=== PATIENT | male | born 1950 | race African-American/Black ===

== ENCOUNTER 2017-07-28 16:33 | Inpatient (IN) | payer MEDICARE, MEDICAID ==
[2017-07-28 17:42] LABS: ABSOLUTE EOSINOPHILS # (AUTO) 0.3 10^3/uL (0.0-0.6); ABSOLUTE LYMPHOCYTES (AUTO) 1.8 10^3/uL (0.5-4.7); ABSOLUTE NEUT (AUTO) 7.5 10^3/uL (1.7-8.2); BASOPHILS % (AUTO) 0.5 % (0-2); EOSINOPHILS % (AUTO) 2.4 % (0-6); HEMATOCRIT 46.4 % (37.9-51.0); HEMOGLOBIN 15.6 g/dL (13.5-17.0); MEAN CORPUSCULAR HGB CONC 33.6 g/dL (32.0-36.0); MEAN CORPUSCULAR VOLUME 89 fl (80-97); MONOCYTES % (AUTO) 9.3 % (3-13); PLATELET COUNT 183 10^3/uL (150-450); RED CELL DISTRIBUTION WIDTH 13.5 % (11.5-14.0); SEGMENTED NEUTROPHILS % (AUTO) 70.8 % (42-78); TOTAL CELLS COUNTED % (AUTO) 100 %; WHITE BLOOD COUNT 10.6 10^3/uL (4.0-10.5)
[2017-07-28 17:57] LABS: ALANINE AMINOTRANSFERASE 32 U/L (21-72); ALBUMIN 4.4 g/dL (3.5-5.0); ALKALINE PHOSPHATASE 77 U/L (38-126); ANION GAP 13 (5-19); ASPARTATE AMINO TRANSFERASE 20 U/L (17-59); BILIRUBIN,DIRECT 0.4 mg/dL (0.0-0.4); BILIRUBIN,TOTAL 0.4 mg/dL (0.2-1.3); BLOOD UREA NITROGEN 18 mg/dL (7-20); CALCIUM 9.7 mg/dL (8.4-10.2); CARBON DIOXIDE 26 mmol/L (22-30); CHLORIDE 106 mmol/L (98-107); GLUCOSE 90 mg/dL (75-110); POTASSIUM 4.5 mmol/L (3.6-5.0); TOTAL PROTEIN 7.6 g/dL (6.3-8.2)
[2017-07-28 18:12] LABS: ARTERIAL BLOOD BASE EXCESS 2.3 mmol/L; ARTERIAL BLOOD H2CO3 1.49 mmol/L (1.05-1.35); ARTERIAL BLOOD HCO3 28.5 mmol/L (20-26); ARTERIAL BLOOD O2 SATURATION 94.3 % (94-98); ARTERIAL BLOOD PCO2 49.6 mmHg (35-45); ARTERIAL BLOOD PH 7.38 (7.35-7.45); ARTERIAL BLOOD PO2 73.1 mmHg (80-100)
[2017-07-28 18:14] LABS: ARTERIAL BLOOD FIO2 21%
[2017-07-28] MEDS ORDERED: LEVOFLOXACIN 750 MG/D5W RTU 750 MG/150 ML RTUPB IV ONE (19:00)
[2017-07-28] MEDS ORDERED: INFLUENZA ADLT QUAD (36MOS+) 2017-18 VAC 0.5 ML SYR IM PRN (19:23)
--- NOTE | 2017-07-28 19:44 | RADIOLOGY REPORT (SQ) ---
EXAM DESCRIPTION: CT CHEST WITHOUT COMPLETED DATE/TIME: 07/28/2017 6:52 pm REASON FOR STUDY: pneumonia J12.9 VIRAL PNEUMONIA, UNSPECIFIED E11.8 TYPE 2 DIABETES MELLITUS WITH UNSPECIFIED COMPLICATION COMPARISON: None. TECHNIQUE: CT scan performed of the chest without intravenous contrast. Images reviewed with lung, soft tissue and bone windows. Reconstructed coronal and sagittal MPR images reviewed. All images st ored on PACS. All CT scanners at this facility use dose modulation, iterative reconstruction, and/or weight based d osing when appropriate to reduce radiation dose to as low as reasonably achievable (ALARA). [facility]: Dose Right [facility]: CareDose [facility]: Dose Right [facility]: Teradose 4D [facility]: [employer] RADIATION DOSE: CT Rad equipment meets quality standard of care and radiation dose reduction techniq ues were employed. CTDIvol: 10.9 mGy. DLP: 452 mGy-cm. mGy. LIMITATIONS: No technical limitations. FINDINGS: LUNGS AND PLEURA: There are scattered areas of patchy ground-glass -nodular opacities in b oth lungs, greater in the right upper and both lower lobes. No dense lobar consolidation or pleural effusion. No pneumothorax. Moderate upper lobe paraseptal emphysema. No fibrosis. HILAR AND MEDIASTINAL STRUCTURES: No bulky nodes. No obvious aneurysm. HEART AND VASCULAR STRUCTURES: No aneurysm. Moderate coronary calcifications. No pericardial effusi on. UPPER ABDOMEN: No significant findings. Limited exam. THYROID AND OTHER SOFT TISSUES: No masses. No adenopathy. BONES: No acute finding. HARDWARE: None in the chest. OTHER: No other significant findings. IMPRESSION: There are scattered areas of patchy ground-glass -nodular opacities in both lungs, great er in the right upper and both lower lobes. No dense lobar consolidation or pleural effusion. No pn eumothorax. Moderate upper lobe paraseptal emphysema. TECHNICAL DOCUMENTATION: JOB ID: [id number] Quality ID # [id number]: Final reports with documentation of one or more dose reduction techniques (e.g., Au tomated exposure control, adjustment of the mA and/or kV according to patient size, use of iterative reconstruction technique) 2010 [employer]- All Rights Reserved
--- NOTE | 2017-07-28 19:52 | EKG REPORT ---
SEVERITY:- BORDERLINE ECG - SINUS RHYTHM BORDERLINE T WAVE ABNORMALITIES : Confirmed by: Amos Izaguirre MD 28-Jul-2017 19:51:23
[2017-07-28] MEDS ORDERED: GLUCAGON,HUMAN RECOMB 1 MG INJ IM PRN (20:09)
[2017-07-28] MEDS ORDERED: DEXTROSE 40% GEL 15 GM TUBE PO PRN ×2 (20:09)
[2017-07-28] MEDS ORDERED: DEXTROSE 50%-WATER 25 GM/50 ML DISP.SYRIN IV PRN ×2 (20:09)
[2017-07-28 20:53] LABS: HEMATOCRIT 42.9 % (37.9-51.0); HEMOGLOBIN 14.3 g/dL (13.5-17.0); MEAN CORPUSCULAR HEMOGLOBIN 29.9 pg (27.0-33.4); MEAN CORPUSCULAR HGB CONC 33.4 g/dL (32.0-36.0); MEAN CORPUSCULAR VOLUME 89 fl (80-97); PLATELET COUNT 166 10^3/uL (150-450); RED BLOOD COUNT 4.79 10^6/uL (4.35-5.55); RED CELL DISTRIBUTION WIDTH 13.3 % (11.5-14.0); WHITE BLOOD COUNT 9.6 10^3/uL (4.0-10.5)
[2017-07-28 21:22] LABS: PROTHROMBIN TIME 13.9 SEC (11.4-15.4)
[2017-07-28 21:23] LABS: PARTIAL THROMBOPLASTIN TIME 29.9 SEC (23.5-35.8)
--- NOTE | 2017-07-28 22:29 | PDOC H&P ---
History of Present Illness Admission Date/PCP: 07/28/17 16:51 IBRAHIMA TIRADO MD History of Present Illness: CHAY CANDELARIO is a 66 year old male, He came to the office today for evaluation of respiratory symptoms, he was seen in urgent care few days ago, he is coughing,, vomiting in the office, he was admitted directly from the office into the hospital because of concern for pneumonia. CT of the chest was done, it showed Scattered areas of patchy ground glass nodular opacities in both lungs greater in the right upper arm both lower lobes. There is also moderate upper lobe paraseptal emphysema. ABG was done in room air, pH 7.38 PCO2 49.6 PO2 73.1 bicarbonate 20.5 consistent with mixed acid-base disorder. Past Medical History Cardiac Medical History: Reports: Hypertension Denies: Coronary Artery Disease, Myocardial Infarction Pulmonary Medical History: Denies: Asthma, Bronchitis, Chronic Obstructive Pulmonary Disease (COPD), Pneumonia Neurological Medical History: Denies: Seizures Musculoskeltal Medical History: Denies: Arthritis Psychiatric Medical History: Denies: Depression Hematology: Denies: Anemia Social History Smoking Status: Current Every Day Smoker Cigarettes Packs Per Day: 10 Frequency of Alcohol Use: Social Hx Recreational Drug Use: No Drugs: None Hx Prescription Drug Abuse: No Family History Parental Family History Reviewed: Yes Children Family History Reviewed: Yes Sibling(s) Family History Reviewed.: Yes Medication/Allergy Home Medications: Losartan/Hydrochlorothiazide [Hyzaar 100-12.5 Tablet] 1 each PO DAILY 09/10/13 Metformin HCl [Glucophage] 1,000 mg PO DAILY 09/10/13 Allergies/Adverse Reactions: No Known Allergies Allergy (Unverified 09/10/13 08:56) Review of Systems Constitutional: PRESENT: chills, fatigue, fever(s) Eyes: ABSENT: visual disturbances Ears: ABSENT: hearing changes Cardiovascular: PRESENT: dyspnea on exertion Respiratory: PRESENT: cough, dyspnea, sputum Gastrointestinal: PRESENT: vomiting Genitourinary: ABSENT: dysuria, hematuria Musculoskeletal: ABSENT: joint swelling Integumentary: ABSENT: rash, wounds Neurological: ABSENT: abnormal gait, abnormal speech, confusion, dizziness, focal weakness, syncope Psychiatric: ABSENT: anxiety, depression, homidical ideation, suicidal ideation Endocrine: ABSENT: cold intolerance, heat intolerance, menstrual abnormalities, polydipsia, polyuria Hematologic/Lymphatic: ABSENT: easy bleeding, easy bruising, lymphadenopathy Physical Exam Vital Signs: Temp Pulse Resp BP Pulse Ox 98.8 F 84 16 135/78 H 98 07/28/17 20:01 07/28/17 20:01 07/28/17 20:01 07/28/17 20:01 07/28/17 20:01 General appearance: PRESENT: mild distress Head exam: PRESENT: atraumatic, normocephalic Eye exam: PRESENT: PERRLA Ear exam: PRESENT: normal external ear exam Mouth exam: PRESENT: moist, tongue midline Neck exam: PRESENT: full ROM Respiratory exam: PRESENT: wheezes Cardiovascular exam: PRESENT: RRR, +S1, +S2 Pulses: PRESENT: normal dorsalis pedis pul, +2 pedal pulses bilateral Vascular exam: PRESENT: normal capillary refill GI/Abdominal exam: PRESENT: normal bowel sounds, soft Rectal exam: PRESENT: deferred Neurological exam: PRESENT: alert, CN II-XII grossly intact Psychiatric exam: PRESENT: appropriate affect, normal mood Skin exam: PRESENT: dry, intact, warm Results Laboratory Results: 07/28/17 20:45 07/28/17 20:45 07/28/17 07/28/17 07/28/17 17:25 17:25 17:55 WBC 10.6 H RBC 5.20 Hgb 15.6 Hct 46.4 MCV 89 MCH 30.0 MCHC 33.6 RDW 13.5 Plt Count 183 Seg Neutrophils % 70.8 Lymphocytes % 17.0 Monocytes % 9.3 Eosinophils % 2.4 Basophils % 0.5 Absolute Neutrophils 7.5 Absolute Lymphocytes 1.8 Absolute Monocytes 1.0 Absolute Eosinophils 0.3 Absolute Basophils 0.0 Carbonic Acid 1.49 H HCO3/H2CO3 Ratio 19:1 ABG pH 7.38 ABG pCO2 49.6 H ABG pO2 73.1 L ABG HCO3 28.5 H ABG O2 Saturation 94.3 ABG Base Excess 2.3 FiO2 21% Sodium 145.0 Potassium 4.5 Chloride 106 Carbon Dioxide 26 Anion Gap 13 BUN 18 Creatinine 0.87 Est GFR ( Amer) > 60 Est GFR (Non-Af Amer) > 60 Glucose 90 Calcium 9.7 Total Bilirubin 0.4 AST 20 ALT 32 Alkaline Phosphatase 77 Total Protein 7.6 Albumin 4.4 02/22/18 02/22/18 20:45 20:45 WBC 9.6 RBC 4.79 Hgb 14.3 Hct 42.9 MCV 89 MCH 29.9 MCHC 33.4 RDW 13.3 Plt Count 166 Seg Neutrophils % Lymphocytes % Monocytes % Eosinophils % Basophils % Absolute Neutrophils Absolute Lymphocytes Absolute Monocytes Absolute Eosinophils Absolute Basophils Carbonic Acid HCO3/H2CO3 Ratio ABG pH ABG pCO2 ABG pO2 ABG HCO3 ABG O2 Saturation ABG Base Excess FiO2 Sodium Potassium Chloride Carbon Dioxide Anion Gap BUN Creatinine 0.88 Est GFR ( Amer) > 60 Est GFR (Non-Af Amer) > 60 Glucose Calcium Total Bilirubin AST ALT Alkaline Phosphatase Total Protein Albumin Impressions: Chest CT 07/28/17 00:00 IMPRESSION: There are scattered areas of patchy ground-glass -nodular opacities in both lungs, greater in the right upper and both lower lobes. No dense lobar consolidation or pleural effusion. No pneumothorax. Moderate upper lobe paraseptal emphysema. Assessment & Plan - Diagnosis (1) Acute exacerbation of chronic obstructive pulmonary disease (COPD) Plan: Patient presented with acute exacerbation of chronic obstructive pulmonary disease, ABG consistent with mixed acid-base disorder. Treat with IV Solu- Medrol, bronchodilators (2) Pneumonia Qualifiers: Pneumonia type: due to unspecified organism Laterality: unspecified laterality Lung location: unspecified part of lung Qualified Code(s): J18.9 - Pneumonia, unspecified organism Is this a current diagnosis for this admission?: Yes Plan: Treated with IV antibiotic (3) Mixed acid base balance disorder Is this a current diagnosis for this admission?: Yes
[2017-07-28] MEDS: METHYLPREDNISOLONE INJ 125 MG/2 ML SDV IV SCH (23:02)
[2017-07-28] MEDS: CEFEPIME HCL 2 GM in NORMAL SALINE 100 ML IV SCH (23:02)
[2017-07-29] MEDS: METHYLPREDNISOLONE INJ 125 MG/2 ML SDV IV SCH ×3 (05:20→22:24)
[2017-07-29] MEDS: INSULIN LISPRO 100 UNIT/ML 3 ML VIAL SUBCUT PRN ×2 (08:18→22:25)
[2017-07-29] MEDS: CEFEPIME HCL 2 GM in NORMAL SALINE 100 ML IV SCH ×2 (09:18→22:25)
[2017-07-29] MEDS: METFORMIN HCL 500 MG TABLET PO SCH (09:18)
[2017-07-29] MEDS: ENOXAPARIN SODIUM INJ 40 MG/0.4 ML DISP.SYRIN SUBCUT SCH (09:18)
[2017-07-29] MEDS: IPRATROPIUM/ALBUTEROL 0.5-2.5 MG/3 ML AMPUL NEB SCH ×3 (11:41→19:37)
[2017-07-29] MEDS: ACETAMINOPHEN 325 MG TABLET PO SCH ×3 (12:20→23:48)
[2017-07-29 13:32] LABS: APPEARANCE,URINE CLEAR; BILIRUBIN,URINE NEGATIVE (NEGATIVE); COLOR,URINE YELLOW; GLUCOSE, URINE 50 mg/dL (NEGATIVE); KETONES,URINE NEGATIVE (NEGATIVE); LEUKOCYTE ESTERASE,URINE NEGATIVE (NEGATIVE); NITRITE,URINE NEGATIVE (NEGATIVE); PROTEIN,URINE NEGATIVE (NEGATIVE); URINE SPECIFIC GRAVITY 1.028; UROBILINOGEN,URINE NEGATIVE mg/dL (<2.0)
[2017-07-29] MEDS: LEVOFLOXACIN 750 MG/D5W RTU 750 MG/150 ML RTUPB IV SCH (17:33)
--- NOTE | 2017-07-29 21:55 | PDOC PROGRESS REPORT ---
Subjective Progress Note for:: 07/29/17 Subjective:: Patient was admitted yesterday for the management of acute COPD exacerbation associated with pneumonia and mixed acid-base disorder. He complained of back pain,, cough Reason For Visit: PNEUMONIA Physical Exam Vital Signs: Temp Pulse Resp BP Pulse Ox 98.6 F 101 H 14 135/83 H 95 07/29/17 19:29 07/29/17 19:37 07/29/17 19:37 07/29/17 19:29 07/29/17 19:37 Intake & Output 07/28/17 07/29/17 07/30/17 06:59 06:59 06:59 Intake Total 480 690 Output Total 600 375 Balance -120 315 Weight 84.822 kg General appearance: PRESENT: mild distress Head exam: PRESENT: atraumatic, normocephalic Eye exam: PRESENT: conjunctiva pink, EOMI, PERRLA Ear exam: PRESENT: normal external ear exam Mouth exam: PRESENT: moist, tongue midline Neck exam: PRESENT: full ROM Respiratory exam: PRESENT: wheezes Cardiovascular exam: PRESENT: RRR, +S1, +S2 Pulses: PRESENT: normal dorsalis pedis pul, +2 pedal pulses bilateral Vascular exam: PRESENT: normal capillary refill GI/Abdominal exam: PRESENT: normal bowel sounds, soft Rectal exam: PRESENT: deferred Neurological exam: PRESENT: alert, awake, oriented to person, oriented to place , oriented to time, oriented to situation, CN II-XII grossly intact Psychiatric exam: PRESENT: appropriate affect, normal mood Skin exam: PRESENT: dry, intact, warm Results Laboratory Results: 07/28/17 20:45 07/28/17 20:45 07/29/17 12:41 Urine Color YELLOW Urine Appearance CLEAR Urine pH 5.0 Ur Specific Colp 1.028 Urine Protein NEGATIVE Urine Glucose (UA) 50 H Urine Ketones NEGATIVE Urine Blood NEGATIVE Urine Nitrite NEGATIVE Ur Leukocyte Esterase NEGATIVE Urine WBC (Auto) 1 Urine RBC (Auto) 0 07/29/17 12:41 Sputum Gram Stain - Final 07/29/17 12:41 Sputum Sputum Culture - Final Impressions: Chest CT 07/28/17 00:00 IMPRESSION: There are scattered areas of patchy ground-glass -nodular opacities in both lungs, greater in the right upper and both lower lobes. No dense lobar consolidation or pleural effusion. No pneumothorax. Moderate upper lobe paraseptal emphysema. Assessment & Plan - Diagnosis (1) Acute exacerbation of chronic obstructive pulmonary disease (COPD) Is this a current diagnosis for this admission?: Yes Plan: Continue IV antibiotic, Solu-Medrol, bronchodilators (2) Pneumonia Qualifiers: Pneumonia type: due to unspecified organism Laterality: unspecified laterality Lung location: unspecified part of lung Qualified Code(s): J18.9 - Pneumonia, unspecified organism Is this a current diagnosis for this admission?: Yes (3) Mixed acid base balance disorder Is this a current diagnosis for this admission?: Yes
[2017-07-29] MEDS: ZOLPIDEM TARTRATE 5 MG TABLET PO SCH (22:24)
[2017-07-30] MEDS: IPRATROPIUM/ALBUTEROL 0.5-2.5 MG/3 ML AMPUL NEB SCH ×3 (00:06→08:04)
[2017-07-30] MEDS: ACETAMINOPHEN 325 MG TABLET PO SCH ×4 (06:50→23:25)
[2017-07-30] MEDS: METHYLPREDNISOLONE INJ 125 MG/2 ML SDV IV SCH ×3 (06:50→21:17)
[2017-07-30] MEDS: HYDROCHLOROTHIAZIDE 12.5 MG CAPSULE PO SCH (09:18)
[2017-07-30] MEDS: METFORMIN HCL 500 MG TABLET PO SCH (09:18)
[2017-07-30] MEDS: LOSARTAN POTASSIUM 50 MG TABLET PO SCH (09:18)
[2017-07-30] MEDS: ENOXAPARIN SODIUM INJ 40 MG/0.4 ML DISP.SYRIN SUBCUT SCH (09:20)
[2017-07-30] MEDS: INSULIN LISPRO 100 UNIT/ML 3 ML VIAL SUBCUT PRN ×2 (09:20→11:45)
[2017-07-30] MEDS: CEFEPIME HCL 2 GM in NORMAL SALINE 100 ML IV SCH ×2 (09:27→21:17)
[2017-07-30] MEDS ORDERED: (PENDING PHARMACY ID) (Losartan/Hydrochlorothiazide [Hyzaar 100-12.5 Tablet] 1 EACH) PO SCH (10:00)
--- NOTE | 2017-07-30 17:26 | PDOC PROGRESS REPORT ---
Subjective Progress Note for:: 07/30/17 Subjective:: Patient was seen by the bedside, he is improving with treatment, he promised he will stop smoking cigarettes Reason For Visit: COPD, EXACERBATION,PNEUMONIA, MIXED ACID BASE Physical Exam Vital Signs: Temp Pulse Resp BP Pulse Ox 98.2 F 86 16 149/85 H 97 07/30/17 16:00 07/30/17 16:00 07/30/17 16:00 07/30/17 16:00 07/30/17 16:00 Intake & Output 07/29/17 07/30/17 07/31/17 06:59 06:59 06:59 Intake Total 480 1510 Output Total 600 1275 Balance -120 235 Weight 84.822 kg General appearance: PRESENT: no acute distress, well-developed, well-nourished Head exam: PRESENT: atraumatic, normocephalic Eye exam: PRESENT: conjunctiva pink, EOMI, PERRLA Ear exam: PRESENT: normal external ear exam Mouth exam: PRESENT: moist, tongue midline Neck exam: PRESENT: full ROM Respiratory exam: PRESENT: wheezes Cardiovascular exam: PRESENT: RRR, +S1, +S2 Vascular exam: PRESENT: normal capillary refill GI/Abdominal exam: PRESENT: normal bowel sounds, soft Rectal exam: PRESENT: deferred Neurological exam: PRESENT: alert, awake, oriented to person, oriented to place , oriented to time, oriented to situation, CN II-XII grossly intact Psychiatric exam: PRESENT: appropriate affect, normal mood Skin exam: PRESENT: dry, intact, warm Results Laboratory Results: 07/28/17 20:45 07/28/17 20:45 07/29/17 12:41 Sputum Gram Stain - Final 07/29/17 12:41 Sputum Sputum Culture - Final Impressions: Chest CT 07/28/17 00:00 IMPRESSION: There are scattered areas of patchy ground-glass -nodular opacities in both lungs, greater in the right upper and both lower lobes. No dense lobar consolidation or pleural effusion. No pneumothorax. Moderate upper lobe paraseptal emphysema. Assessment & Plan - Diagnosis (1) Acute exacerbation of chronic obstructive pulmonary disease (COPD) Is this a current diagnosis for this admission?: Yes (2) Pneumonia Qualifiers: Pneumonia type: due to unspecified organism Laterality: unspecified laterality Lung location: unspecified part of lung Qualified Code(s): J18.9 - Pneumonia, unspecified organism Is this a current diagnosis for this admission?: Yes (3) Mixed acid base balance disorder Is this a current diagnosis for this admission?: Yes - Plan Summary Plan Summary: Continue IV antibiotic, Solu-Medrol, bronchodilators
[2017-07-30] MEDS: LEVOFLOXACIN 750 MG/D5W RTU 750 MG/150 ML RTUPB IV SCH (18:26)
[2017-07-30] MEDS: ZOLPIDEM TARTRATE 5 MG TABLET PO SCH (21:17)
[2017-07-30] MEDS: IPRATROPIUM/ALBUTEROL 0.5-2.5 MG/3 ML AMPUL NEB PRN (21:17)
[2017-07-31] MEDS: ACETAMINOPHEN 325 MG TABLET PO SCH (06:06)
[2017-07-31] MEDS: METHYLPREDNISOLONE INJ 125 MG/2 ML SDV IV SCH (06:06)
[2017-07-31] MEDS: HYDROCHLOROTHIAZIDE 12.5 MG CAPSULE PO SCH (10:33)
[2017-07-31] MEDS: METFORMIN HCL 500 MG TABLET PO SCH (10:34)
[2017-07-31] MEDS: CEFEPIME HCL 2 GM in NORMAL SALINE 100 ML IV SCH (10:34)
[2017-07-31] MEDS: LOSARTAN POTASSIUM 50 MG TABLET PO SCH (10:34)
[2017-07-31] MEDS: ENOXAPARIN SODIUM INJ 40 MG/0.4 ML DISP.SYRIN SUBCUT SCH (10:35)
[2017-07-31] MEDS: IPRATROPIUM/ALBUTEROL 0.5-2.5 MG/3 ML AMPUL NEB PRN (12:23)
[2017-07-31 13:24] VITALS: BP 149/85
--- NOTE | 2017-07-31 13:39 | PDOC DISCHARGE SUMMARY ---
General - Admit/Disc Date/PCP Admission Date/Primary Care Provider: 07/28/17 16:51 IBRAHIMA TIRADO MD Discharge Date: 07/31/17 - Discharge Diagnosis (1) Acute exacerbation of chronic obstructive pulmonary disease (COPD) Is this a current diagnosis for this admission?: Yes (2) Pneumonia Is this a current diagnosis for this admission?: Yes (3) Mixed acid base balance disorder Is this a current diagnosis for this admission?: Yes - Additional Information Discharge Activity: Activity As Tolerated, Balance Activity w/Rest Prescriptions: Albuterol Sulfate [Proair HFA] 1 - 2 puff IH Q4 PRN #1 inhaler PRN Reason: Fluticasone/Vilanterol [Breo Ellipta 100-25 Mcg INH] 1 each IH DAILY #1 aer.pow.ba Levofloxacin [Levaquin 750 mg Tablet] 750 mg PO DAILY #10 tab Prednisone 20 mg PO DAILY #24 tablet Tiotropium Hiram [Spiriva] 18 mcg IH DAILY #90 cap.w.dev Home Medications: Losartan/Hydrochlorothiazide [Hyzaar 100-12.5 Tablet] 1 each PO DAILY 09/10/13 Metformin HCl [Glucophage] 1,000 mg PO DAILY 09/10/13 Albuterol Sulfate [Proair HFA] 1 - 2 puff IH Q4 PRN #1 inhaler 07/31/17 Fluticasone/Vilanterol [Breo Ellipta 100-25 Mcg INH] 1 each IH DAILY #1 aer.pow.ba 07/31/17 Levofloxacin [Levaquin 750 mg Tablet] 750 mg PO DAILY #10 tab 07/31/17 Prednisone 20 mg PO DAILY #24 tablet 07/31/17 Tiotropium Hiram [Spiriva] 18 mcg IH DAILY #90 cap.w.dev 07/31/17 History of Present Illness History of Present Illness: CHAY CANDELARIO is a 66 year old male, He came to the office today for evaluation of respiratory symptoms, he was seen in urgent care few days ago, he is coughing,, vomiting in the office, he was admitted directly from the office into the hospital because of concern for pneumonia. CT of the chest was done, it showed Scattered areas of patchy ground glass nodular opacities in both lungs greater in the right upper arm both lower lobes. There is also moderate upper lobe paraseptal emphysema. ABG was done in room air, pH 7.38 PCO2 49.6 PO2 73.1 bicarbonate 20.5 consistent with mixed acid-base disorder. Hospital Course Hospital Course: Patient was admitted for the management of acute COPD exacerbation with pneumonia, he was treated with IV Solu-Medrol, 125 mg every 8 hours, IV antibiotic, bronchodilators with DuoNeb. He improved with management symptoms resolved. He be discharged home today Physical Exam Vital Signs: Temp Pulse Resp BP Pulse Ox 98.2 F 84 16 149/85 H 98 07/31/17 13:19 07/31/17 13:19 07/31/17 13:19 07/31/17 13:19 07/31/17 13:19 Intake & Output 07/30/17 07/31/17 08/01/17 06:59 06:59 06:59 Intake Total 1510 1700 Output Total 1275 Balance 235 1700 Weight 84.6 kg General appearance: PRESENT: no acute distress, well-developed, well-nourished Head exam: PRESENT: atraumatic, normocephalic Eye exam: PRESENT: conjunctiva pink, EOMI, PERRLA Ear exam: PRESENT: normal external ear exam Mouth exam: PRESENT: moist, tongue midline Neck exam: PRESENT: full ROM Respiratory exam: PRESENT: clear to auscultation pawan Cardiovascular exam: PRESENT: RRR, +S1, +S2 Vascular exam: PRESENT: normal capillary refill GI/Abdominal exam: PRESENT: normal bowel sounds, soft Rectal exam: PRESENT: deferred Neurological exam: PRESENT: alert, CN II-XII grossly intact. ABSENT: motor sensory deficit Psychiatric exam: PRESENT: appropriate affect, normal mood Skin exam: PRESENT: dry, intact, warm Results Laboratory Results: 07/28/17 20:45 07/28/17 20:45 Impressions: Chest CT 07/28/17 00:00 IMPRESSION: There are scattered areas of patchy ground-glass -nodular opacities in both lungs, greater in the right upper and both lower lobes. No dense lobar consolidation or pleural effusion. No pneumothorax. Moderate upper lobe paraseptal emphysema. Qualifiers - * PATEINT BEING DISCHARGED WITH ANY OF THE FOLLOWING DIAGNOSIS?: No
== END 2017-07-31 14:42 | disposition hospice, home (50) | DRG 190 ==
LOC: ER 16:33 → 4N 16:51 → OBSVTOIN 16:51
PROVIDERS: ADMIT Internal Medicine; ATTEND Internal Medicine
PROC: 3E0F73Z Introduction of Anti-inflammatory into Respiratory Tract, Via Natural or Artificial Opening (ICD-10-PCS; principal; 2017-07-28)
DX: J44.1 Chronic obstructive pulmonary disease with (acute) exacerbation (principal); J18.9 Pneumonia, unspecified organism; E87.4 Mixed disorder of acid-base balance; J44.0 Chronic obstructive pulmonary disease with (acute) lower respiratory infection; I10 Essential (primary) hypertension; F17.210 Nicotine dependence, cigarettes, uncomplicated; E11.9 Type 2 diabetes mellitus without complications
CPT/HCPCS: 36415; 36600; 71250; 80048; 80076; 81001; 82565; 82803; 82962; 83036; 85025; 85027; 85610; 85730; 87040; 87205; 90686; 93005; 93010; 94640; G0378; G0379; J0692; J1650; J1815; J1956; J2930; J7620

== ENCOUNTER 2017-08-15 17:41 | Observation (INO) | payer MEDICARE, MEDICAID ==
--- NOTE | 2017-08-15 19:11 | RADIOLOGY REPORT (SQ) ---
EXAM DESCRIPTION: CHEST PA/LAT COMPLETED DATE/TIME: 08/15/2017 6:59 pm REASON FOR STUDY: cva COMPARISON: None. EXAM PARAMETERS: NUMBER OF VIEWS: two views TECHNIQUE: Digital Frontal and Lateral radiographic views of the chest acquired. RADIATION DOSE: NA LIMITATIONS: none FINDINGS: LUNGS AND PLEURA: The lungs are mildly hyperexpanded. There is no infiltrate or effusion. There is no mass. MEDIASTINUM AND HILAR STRUCTURES: No masses or contour abnormalities. HEART AND VASCULAR STRUCTURES: Heart normal size. No evidence for failure. BONES: No acute findings. HARDWARE: None in the chest. OTHER: No other significant finding. IMPRESSION: Mild chronic lung changes with no acute cardiopulmonary disease. TECHNICAL DOCUMENTATION: JOB ID: [id number] [employer]- All Rights Reserved Reading location - IP/workstation name: [email or web address]
[2017-08-15 19:54] LABS: ABSOLUTE EOSINOPHILS # (AUTO) 0.2 10^3/uL (0.0-0.6); ABSOLUTE LYMPHOCYTES (AUTO) 1.9 10^3/uL (0.5-4.7); ABSOLUTE MONOCYTES (AUTO) 0.9 10^3/uL (0.1-1.4); ABSOLUTE NEUT (AUTO) 8.5 10^3/uL (1.7-8.2); BASOPHILS % (AUTO) 0.4 % (0-2); EOSINOPHILS % (AUTO) 1.3 % (0-6); HEMATOCRIT 42.7 % (37.9-51.0); HEMOGLOBIN 14.2 g/dL (13.5-17.0); LYMPHOCYTES % (AUTO) 16.3 % (13-45); MEAN CORPUSCULAR HEMOGLOBIN 29.7 pg (27.0-33.4); MEAN CORPUSCULAR HGB CONC 33.2 g/dL (32.0-36.0); MEAN CORPUSCULAR VOLUME 89 fl (80-97); MONOCYTES % (AUTO) 8.2 % (3-13); PLATELET COUNT 149 10^3/uL (150-450); RED BLOOD COUNT 4.78 10^6/uL (4.35-5.55); RED CELL DISTRIBUTION WIDTH 13.7 % (11.5-14.0); SEGMENTED NEUTROPHILS % (AUTO) 73.8 % (42-78); TOTAL CELLS COUNTED % (AUTO) 100 %; WHITE BLOOD COUNT 11.6 10^3/uL (4.0-10.5)
[2017-08-15] MEDS ORDERED: INFLUENZA ADLT QUAD (36MOS+) 2017-18 VAC 0.5 ML SYR IM PRN (20:15)
[2017-08-15] MEDS ORDERED: (PENDING PHARMACY ID) (Fluticasone/Vilanterol [Breo Ellipta 100-25 Mcg Inh] 1 EACH) IH SCH (20:15)
[2017-08-15 20:18] LABS: ALANINE AMINOTRANSFERASE 43 U/L (21-72); ALBUMIN 3.9 g/dL (3.5-5.0); ALKALINE PHOSPHATASE 68 U/L (38-126); ANION GAP 10 (5-19); ASPARTATE AMINO TRANSFERASE 16 U/L (17-59); BILIRUBIN,DIRECT 0.5 mg/dL (0.0-0.4); BILIRUBIN,TOTAL 0.6 mg/dL (0.2-1.3); BLOOD UREA NITROGEN 17 mg/dL (7-20); CALCIUM 9.3 mg/dL (8.4-10.2); CARBON DIOXIDE 31 mmol/L (22-30); CHLORIDE 102 mmol/L (98-107); GLUCOSE 87 mg/dL (75-110); POTASSIUM 3.8 mmol/L (3.6-5.0); SODIUM 142.9 mmol/L (137-145); TOTAL PROTEIN 6.7 g/dL (6.3-8.2)
--- NOTE | 2017-08-15 20:23 | PDOC H&P ---
History of Present Illness Admission Date/PCP: 08/15/17 17:41 IBRAHIMA TIRADO MD History of Present Illness: CHAY CANDELARIO is a 66 year old male, He came to the office this morning with his sister for evaluation of confusion of acute onset, memory loss of acute onset, gait disturbance and loss of nasolabial fold. In the office he was evaluated, there was loss of nasolabial fold, slight weakness of the left upper extremities because of the evaluation of patient's symptoms cerebral infarction was suspected as the etiology of patient's symptoms, a stat MRI head was done with contrast, it showed abnormal signal involving the right lentiform nucleus and external capsule with irregular peripheral enhancement and mild restricted diffusion. This is felt to be due to a subacute infarct there are also a few focal areas of restricted diffusion in the periventricular white matter adjacent to the occipital horn of the right lateral ventricle also felt to be due to small focal lacunar infarcts. The infarct is consistent with a right MCA distribution. He was admitted directly from outpatient into the hospital to be manage the etiology of the stroke is most likely embolic stroke. Past Medical History Cardiac Medical History: Reports: Hypertension Pulmonary Medical History: Reports: Chronic Obstructive Pulmonary Disease (COPD) Endocrine Medical History: Reports: Diabetes Mellitus Type 2 Musculoskeltal Medical History: Reports: Arthritis Psychiatric Medical History: Denies: Depression Hematology: Denies: Anemia Social History Smoking Status: Current Some Day Smoker Frequency of Alcohol Use: Social Hx Recreational Drug Use: No Drugs: None Hx Prescription Drug Abuse: No Family History Parental Family History Reviewed: Yes Children Family History Reviewed: Yes Sibling(s) Family History Reviewed.: Yes Medication/Allergy Home Medications: Losartan/Hydrochlorothiazide [Hyzaar 100-12.5 Tablet] 1 each PO DAILY 09/10/13 Metformin HCl [Glucophage] 1,000 mg PO DAILY 09/10/13 Albuterol Sulfate [Proair HFA] 1 - 2 puff IH Q4 PRN #1 inhaler 07/31/17 Fluticasone/Vilanterol [Breo Ellipta 100-25 Mcg INH] 1 each IH DAILY #1 aer.pow.ba 07/31/17 Levofloxacin [Levaquin 750 mg Tablet] 750 mg PO DAILY #10 tab 07/31/17 Prednisone 20 mg PO DAILY #24 tablet 07/31/17 Tiotropium [place] [Spiriva] 18 mcg IH DAILY #90 cap.w.dev 07/31/17 Allergies/Adverse Reactions: No Known Allergies Allergy (Unverified 09/10/13 08:56) Review of Systems Constitutional: ABSENT: chills, fever(s), headache(s), weight gain, weight loss Eyes: ABSENT: visual disturbances Ears: ABSENT: hearing changes Cardiovascular: ABSENT: chest pain, dyspnea on exertion, edema, orthropnea, palpitations Respiratory: ABSENT: cough, hemoptysis Gastrointestinal: ABSENT: abdominal pain, constipation, diarrhea, hematemesis, hematochezia, nausea, vomiting Genitourinary: ABSENT: dysuria, hematuria Musculoskeletal: ABSENT: joint swelling Integumentary: ABSENT: rash, wounds Neurological: PRESENT: abnormal gait, confusion, focal weakness, memory loss Psychiatric: ABSENT: anxiety, depression, homidical ideation, suicidal ideation Endocrine: ABSENT: cold intolerance, heat intolerance, menstrual abnormalities, polydipsia, polyuria Hematologic/Lymphatic: ABSENT: easy bleeding, easy bruising, lymphadenopathy Physical Exam Vital Signs: Temp Pulse Resp BP Pulse Ox 98.4 F 96 18 130/71 H 96 08/15/17 19:40 08/15/17 19:40 08/15/17 19:40 08/15/17 19:40 08/15/17 19:40 General appearance: PRESENT: no acute distress, well-developed, well-nourished Head exam: PRESENT: atraumatic, normocephalic Eye exam: PRESENT: conjunctiva pink, EOMI, PERRLA Ear exam: PRESENT: normal external ear exam Mouth exam: PRESENT: moist, tongue midline Neck exam: PRESENT: full ROM Respiratory exam: PRESENT: clear to auscultation pawan Cardiovascular exam: PRESENT: RRR, +S1, +S2 Pulses: PRESENT: normal dorsalis pedis pul, +2 pedal pulses bilateral Vascular exam: PRESENT: normal capillary refill GI/Abdominal exam: PRESENT: normal bowel sounds, soft Rectal exam: PRESENT: deferred Neurological exam: PRESENT: alert, oriented to time, oriented to situation, motor sensory deficit - Mild weakness of the left upper extremities and lower extremities, other - Loss of nasolabial fold Psychiatric exam: PRESENT: appropriate affect, normal mood Skin exam: PRESENT: dry, intact, warm Results Laboratory Results: 08/15/17 19:35 08/15/17 19:35 WBC 11.6 H RBC 4.78 Hgb 14.2 Hct 42.7 MCV 89 MCH 29.7 MCHC 33.2 RDW 13.7 Plt Count 149 L Seg Neutrophils % 73.8 Lymphocytes % 16.3 Monocytes % 8.2 Eosinophils % 1.3 Basophils % 0.4 Absolute Neutrophils 8.5 H Absolute Lymphocytes 1.9 Absolute Monocytes 0.9 Absolute Eosinophils 0.2 Absolute Basophils 0.0 Impressions: Chest X-Ray 08/15/17 00:00 IMPRESSION: Mild chronic lung changes with no acute cardiopulmonary disease. Assessment & Plan - Diagnosis (1) Acute right MCA stroke Is this a current diagnosis for this admission?: Yes Plan: This is most likely embolic stroke, patient is admitted, he will be treated with antiplatelet medication, carotid Doppler will be requested, 2D echo will be ordered, EKG will be ordered (2) Diabetes mellitus type 2 in nonobese Is this a current diagnosis for this admission?: Yes (3) Chronic obstructive pulmonary disease Qualifiers: COPD type: unspecified COPD Qualified Code(s): J44.9 - Chronic obstructive pulmonary disease, unspecified
[2017-08-15 20:35] LABS: FREE T4 (FREE THYROXINE) 1.25 ng/dL (0.78-2.19)
[2017-08-15 20:48] LABS: THYROID STIMULATING HORMONE 1.06 uIU/mL (0.47-4.68)
[2017-08-15] MEDS: ASPIRIN/DIPYRIDAMOLE 25-200 MG 1 CAP.SR CPMP.12HR PO SCH (22:10)
[2017-08-15] MEDS: ATORVASTATIN CALCIUM 80 MG TABLET PO SCH (22:10)
[2017-08-15] MEDS: TIOTROPIUM BROMIDE DPI 5 CAP/KIT (18 MCG/CAP) IH SCH (22:10)
[2017-08-16 00:53] LABS: CREATINE KINASE MB 0.27 ng/mL (<4.55)
[2017-08-16 00:54] LABS: TROPONIN I < 0.012 ng/mL
[2017-08-16 06:54] LABS: CREATINE KINASE MB 0.28 ng/mL (<4.55)
[2017-08-16 06:57] LABS: TROPONIN I < 0.012 ng/mL
--- NOTE | 2017-08-16 07:26 | EKG REPORT ---
SEVERITY:- BORDERLINE ECG - SINUS RHYTHM BORDERLINE T WAVE ABNORMALITIES : Confirmed by: Amos Izaguirre MD 16-Aug-2017 07:26:17
[2017-08-16] MEDS: ASPIRIN/DIPYRIDAMOLE 25-200 MG 1 CAP.SR CPMP.12HR PO SCH ×2 (08:57→22:26)
[2017-08-16] MEDS: METFORMIN HCL 500 MG TABLET PO SCH (08:57)
--- NOTE | 2017-08-16 11:56 | Physician Advisory Note ---
Physician Advisor ProgressNote .: Pursuant to the plan for [facility], I have reviewed the medical record for this patient. Physician Advisor Statement: Beautiful documentation of Acute Rt MCA distribution embolic CVA w/cerebral infarction, w/associated memory loss, facial droop, gait disturbance, .... Please consider documenting, if you agree: 1. To go w/CVA dx: -"Rt hand dominant", & -day/time of onset of sx? -was there "Lt hemiparesis" initially? -details on memory loss/confusion (examples?), & focal weakness (?"Lt hemiparesis" or "Lt facial droop" or both?) -which sx are resolved/improved/persistent? 2. Medical necessity (Medicare pt): Does pt have persistent deficit(s) or other clinical issue(s) that require continued hospital monitoring/care for a 2nd MN? (Keeping a 2nd MN for "convenience" of not sending home late at night, or because ECHO team is slow, etc, is not something payers will cover or accept as reason for Inpatient status. Second MN must be "medically necessary" for it to count for Inpatient status.) - If not (i.e., pt ok for d/c later today), then: A. pt should be Obs status, not Inpatient - or - B. DCSummary needs to state very clearly that: (1) attending fully expected 2MN to be required, & why, at time of admission, & (2) "I WAS QUITE SURPRISED" that pt improved so quickly that he could go home today. - If so (i.e., pt not ok for d/c today for ongoing clinical reasons), please be sure to document reasons explicitly! Some findings so far that may impact status: -Subacute CVA by MRI, means risk to pt is greater than for a pt who has neuro sx without evidence of infarction on scanning. -This pt is felt by PT/OT to have no ongoing needs for therapy. -He does have persistent tachycardia. -No ECHO/carotid doppler result on chart yet at 11:33 AM. Thanks! BLAIR
[2017-08-16 13:49] LABS: CREATINE KINASE MB 0.22 ng/mL (<4.55)
[2017-08-16 13:53] LABS: TROPONIN I < 0.012 ng/mL
--- NOTE | 2017-08-16 16:16 | RADIOLOGY REPORT (SQ) ---
EXAM DESCRIPTION: CAROTID DOPPLER COMPLETED DATE/TIME: 08/16/2017 4:07 pm REASON FOR STUDY: cva COMPARISON: None. TECHNIQUE: Grayscale ultrasound, Doppler velocity and spectra, and color Doppler images acquired of the extra-cranial carotid and vertebral arteries. Images stored on PACS. LIMITATIONS: None. FINDINGS: RIGHT CAROTID CCA Velocities: Within normal limits. ICA Velocities Peak systolic 1.0 m/s. End diastolic 0.3 m/s. Proximal ICA/CCA peak systolic ratio 1.8. Scattered plaque. LEFT CAROTID CCA Velocities: Within normal limits. ICA Velocities Peak systolic 1.02 m/s. End diastolic 0.37 m/s. Proximal ICA/CCA peak systolic ratio 0.7. Scattered plaque. VERTEBRAL ARTERIES: Antegrade flow. Normal waveforms. SUBCLAVIAN ARTERIES: No finding. OTHER: No other significant finding. IMPRESSION: NO HEMODYNAMICALLY SIGNIFICANT STENOSIS. COMMENT: Quality ID #[id number]: Velocity criteria are extrapolated from the diameter data as defined by t mitchell Society of Radiologists in Ultrasound Consensus Conference. Radiology 2003: 229; 340-346. TECHNICAL DOCUMENTATION: JOB ID: [id number] [employer]- All Rights Reserved Reading location - IP/workstation name: [email or web address]
--- NOTE | 2017-08-16 18:31 | XCELERA REPORT ---
[address] [address] Transthoracic Echocardiogram Report Name: CHAY CANDELARIO Age: 66 yrs Gender: Male : 1950 Patient Status: Inpatient Patient Location: [address] [place] [address] Study Date: 08/16/2017 01:32 PM Height: 73 in Weight: 188 lb BSA: 2.1 m2 Procedure: A complete two-dimensional transthoracic echocardiogram was performed (2D, M-mode, spectral and color flow Doppler). The study was technically limited with all images being suboptimal in quality. Reason For Study: cva Ordering Physician: IBRAHIMA TIRADO Performed By: Paula Quinn Interpretation Summary The study was technically limited with all images being suboptimal in quality. Consider SHY if clinically indicated. May consider mobile cardiac telemetry monitoring (MCT) for ruling out transient AFIB. The left ventricle is grossly normal size. There is borderline concentric left ventricular hypertrophy. The left ventricular ejection fraction is preserved. Consider additional methods to assess LVEF such as MUGA scan, CTA heart, cardiac MRI, SHY, etc. if clinically indicated. LV diastolic function could not be adequately assessed. Regional wall motion abnormalities cannot be excluded due to limited visualization. The right ventricle is not well visualized secondary to technical limitations Right atrium not well visualized secondary to technical limitations The left atrium is borderline dilated. There is no mitral regurgitation noted. There is no mitral valve stenosis. No aortic regurgitation is present. There is no aortic valve stenosis There is a trace or physiologic amount of tricuspid regurgitation Tricuspid regurgitation jet envelope not well defined to measure RV systolic pressure accurately. The aortic root is not well visualized. The inferior vena cava appeared normal and decreased > 50% with respiration (RAP 5-10 mmHg) There is no pericardial effusion. MMode/2D Measurements & Calculations RVDd: 2.2 cm LVIDd: 4.8 cm FS: 58.8 % Ao root diam: 3.6 cm IVSd: 0.81 cm LVIDs: 2.0 cm EDV(Teich): 108.9 ml LVPWd: 0.77 cm ESV(Teich): 12.6 ml Ao root area: 10.2 cm2 EF(Teich): 88.5 % Doppler Measurements & Calculations MV E max denae: MV dec slope: Ao V2 max: LV V1 max P.8 cm/sec 112.8 cm/sec 3.3 mmHg MV A max denae: 320.6 cm/sec2 Ao max PG: LV V1 max: 103.0 cm/sec MV dec time: 5.1 mmHg 91.0 cm/sec MV E/A: 0.70 0.22 sec PA V2 max: 89.3 cm/sec PA max P.2 mmHg Left Ventricle The left ventricle is grossly normal size. There is borderline concentric left ventricular hypertrophy. The left ventricular ejection fraction is preserved. Consider additional methods to assess LVEF such as MUGA scan, CTA heart, cardiac MRI, SHY, etc. if clinically indicated. LV diastolic function could not be adequately assessed. Regional wall motion abnormalities cannot be excluded due to limited visualization. Right Ventricle The right ventricle is not well visualized secondary to technical limitations. Atria Right atrium not well visualized secondary to technical limitations. The left atrium is borderline dilated. Interarterial septum not well visualized and not well dopplered. Cannot comment on ASD/PFO presence. Mitral Valve The mitral valve is not well visualized. There is no mitral valve stenosis. There is no mitral regurgitation noted. Aortic Valve The aortic valve is not well visualized secondary to technical limitations. There is no aortic valve stenosis. No aortic regurgitation is present. Tricuspid Valve The tricuspid valve is not well visualized secondary to technical limitations. There is no tricuspid stenosis. There is a trace or physiologic amount of tricuspid regurgitation. Tricuspid regurgitation jet envelope not well defined to measure RV systolic pressure accurately. Pulmonic Valve The pulmonic valve is not well visualized. Great Vessels The aortic root is not well visualized. The inferior vena cava appeared normal and decreased > 50% with respiration (RAP 5-10 mmHg). Effusions There is no pericardial effusion. Incidental Findings Consider SHY if clinically indicated. May consider mobile cardiac telemetry monitoring (MCT) for ruling out transient AFIB. : IBRAHIMA TIRADO > Dex Lynch
--- NOTE | 2017-08-16 21:20 | PDOC PROGRESS REPORT ---
Subjective Progress Note for:: 08/16/17 Subjective:: Patient was admitted yesterday because he has a stroke, he was seen by the bedside, he coming of cough. Presently on observation, the plan is to discharge home in the morningyyyyyyyyyyyyyyyyyyyyyyyyyy Reason For Visit: CVA Physical Exam Vital Signs: Temp Pulse Resp BP Pulse Ox 97.6 F 91 16 134/75 H 91 L 08/16/17 19:34 08/16/17 19:44 08/16/17 19:44 08/16/17 19:44 08/16/17 19:44 Intake & Output 08/15/17 08/16/17 08/17/17 06:59 06:59 06:59 Intake Total 612 903 Output Total 300 575 Balance 312 328 Weight 85.5 kg Head exam: PRESENT: atraumatic, normocephalic Eye exam: PRESENT: EOMI, PERRLA Ear exam: PRESENT: normal external ear exam Mouth exam: PRESENT: moist, tongue midline Cardiovascular exam: PRESENT: RRR Pulses: PRESENT: normal dorsalis pedis pul, +2 pedal pulses bilateral Vascular exam: PRESENT: normal capillary refill GI/Abdominal exam: PRESENT: normal bowel sounds, soft. ABSENT: distended, guarding, mass, organolmegaly, rebound, tenderness Rectal exam: PRESENT: deferred Neurological exam: PRESENT: alert, awake, oriented to person, oriented to place , oriented to time, oriented to situation, CN II-XII grossly intact. ABSENT: motor sensory deficit Psychiatric exam: PRESENT: appropriate affect, normal mood. ABSENT: homicidal ideation, suicidal ideation Skin exam: PRESENT: dry, intact, warm Results Laboratory Results: 08/15/17 19:35 08/15/17 19:35 08/16/17 08/16/17 08/16/17 00:16 00:16 06:03 Creatine Kinase 36 L 34 L CK-MB (CK-2) 0.27 Troponin I < 0.012 08/16/17 08/16/17 08/16/17 06:03 12:46 12:46 Creatine Kinase 39 L CK-MB (CK-2) 0.28 0.22 Troponin I < 0.012 < 0.012 Impressions: Chest X-Ray 08/15/17 00:00 IMPRESSION: Mild chronic lung changes with no acute cardiopulmonary disease. Carotid Doppler Study 08/16/17 00:00 IMPRESSION: NO HEMODYNAMICALLY SIGNIFICANT STENOSIS. Assessment & Plan - Diagnosis (1) Acute right MCA stroke Is this a current diagnosis for this admission?: Yes (2) Diabetes mellitus type 2 in nonobese Is this a current diagnosis for this admission?: Yes (3) Chronic obstructive pulmonary disease Qualifiers: COPD type: unspecified COPD Qualified Code(s): J44.9 - Chronic obstructive pulmonary disease, unspecified
[2017-08-16] MEDS: HEPARIN SOD (PORCINE) 5,000 UNIT/ML 1 ML SYRINGE SUBCUT SCH (22:25)
[2017-08-16] MEDS: TIOTROPIUM BROMIDE DPI 5 CAP/KIT (18 MCG/CAP) IH SCH (22:26)
[2017-08-16] MEDS: ATORVASTATIN CALCIUM 80 MG TABLET PO SCH (22:26)
[2017-08-17] MEDS: HEPARIN SOD (PORCINE) 5,000 UNIT/ML 1 ML SYRINGE SUBCUT SCH ×2 (05:14→14:54)
[2017-08-17] MEDS: METFORMIN HCL 500 MG TABLET PO SCH (12:17)
[2017-08-17] MEDS: ASPIRIN/DIPYRIDAMOLE 25-200 MG 1 CAP.SR CPMP.12HR PO SCH (12:18)
[2017-08-17 15:05] VITALS: BP 155/78
--- NOTE | 2017-08-17 16:14 | PDOC DISCHARGE SUMMARY ---
General - Admit/Disc Date/PCP Admission Date/Primary Care Provider: 08/15/17 17:41 IBRAHIMA TIRADO MD Discharge Date: 08/17/17 - Discharge Diagnosis (1) Acute right MCA stroke Is this a current diagnosis for this admission?: Yes (2) Diabetes mellitus type 2 in nonobese Is this a current diagnosis for this admission?: Yes - Additional Information Discharge Diet: Regular, Diabetic Discharge Activity: Activity As Tolerated, Balance Activity w/Rest Prescriptions: Atorvastatin Calcium [Lipitor 80 mg Tablet] 80 mg PO QHS #90 tablet Albuterol Sulfate [Ventolin HFA MDI 18 GM] 1 - 2 puff IH Q4H PRN #1 mdi PRN Reason: Aspirin/Dipyridamole [Aggrenox 25 mg/200 mg Capsule SA] 1 cap.sr PO Q12 #60 cpmp.12hr Fluticasone/Umeclidin/Vilanter [Trelegy Ellipta 100-62.5-25] 1 each IH DAILY #1 blst.w.dev Home Medications: Ketoconazole 1 applic TOP DAILY 08/16/17 Losartan/Hydrochlorothiazide [Hyzaar 100-12.5 Tablet] 1 tab PO DAILY 08/16/17 Metformin HCl [Glucophage] 1,000 mg PO DAILY 08/16/17 Multivit with Minerals No.55 [Centrum Flavor Burst Adult] 1 tab PO DAILY Albuterol Sulfate [Ventolin HFA MDI 18 GM] 1 - 2 puff IH Q4H PRN #1 mdi Aspirin/Dipyridamole [Aggrenox 25 mg/200 mg Capsule SA] 1 cap.sr PO Q12 #60 cpmp.12hr 08/17/17 Atorvastatin Calcium [Lipitor 80 mg Tablet] 80 mg PO QHS #90 tablet 08/17/17 Fluticasone/Umeclidin/Vilanter [Trelegy Ellipta 100-62.5-25] 1 each IH DAILY #1 blst.w.dev 08/17/17 History of Present Illness History of Present Illness: CHAY CANDELARIO is a 66 year old male, He came to the office this morning with his sister for evaluation of confusion of acute onset, memory loss of acute onset, gait disturbance and loss of nasolabial fold. In the office he was evaluated, there was loss of nasolabial fold, slight weakness of the left upper extremities because of the evaluation of patient's symptoms cerebral infarction was suspected as the etiology of patient's symptoms, a stat MRI head was done with contrast, it showed abnormal signal involving the right lentiform nucleus and external capsule with irregular peripheral enhancement and mild restricted diffusion. This is felt to be due to a subacute infarct there are also a few focal areas of restricted diffusion in the periventricular white matter adjacent to the occipital horn of the right lateral ventricle also felt to be due to small focal lacunar infarcts. The infarct is consistent with a right MCA distribution. He was admitted directly from outpatient into the hospital to be manage the etiology of the stroke is most likely embolic stroke. Hospital Course Hospital Course: Patient was admitted for the management of stroke involving the right brain, a carotid Doppler was done, it was negative for any significant hemodynamic lesion Physical Exam Vital Signs: Temp Pulse Resp BP Pulse Ox 98.4 F 94 16 155/78 H 100 08/17/17 15:03 08/17/17 15:03 08/17/17 15:03 08/17/17 15:03 08/17/17 15:03 Intake & Output 08/16/17 08/17/17 08/18/17 06:59 06:59 06:59 Intake Total 612 1093 Output Total 300 1475 Balance 312 -382 Weight 85.3 kg General appearance: PRESENT: no acute distress, well-developed, well-nourished Head exam: PRESENT: atraumatic, normocephalic Eye exam: PRESENT: conjunctiva pink, EOMI, PERRLA Ear exam: PRESENT: normal external ear exam Mouth exam: PRESENT: moist, tongue midline Neck exam: PRESENT: full ROM Respiratory exam: PRESENT: clear to auscultation pawan Cardiovascular exam: PRESENT: RRR, +S1, +S2 Pulses: PRESENT: normal dorsalis pedis pul, +2 pedal pulses bilateral Vascular exam: PRESENT: normal capillary refill GI/Abdominal exam: PRESENT: normal bowel sounds, soft Rectal exam: PRESENT: deferred Neurological exam: PRESENT: alert, awake, oriented to person, oriented to place , oriented to time, oriented to situation, CN II-XII grossly intact. ABSENT: motor sensory deficit Psychiatric exam: PRESENT: appropriate affect, normal mood. ABSENT: homicidal ideation, suicidal ideation Skin exam: PRESENT: dry, intact, warm. ABSENT: cyanosis, rash Results Laboratory Results: 08/15/17 19:35 08/15/17 19:35 08/16/17 08/16/17 08/16/17 00:16 00:16 06:03 Creatine Kinase 36 L 34 L CK-MB (CK-2) 0.27 Troponin I < 0.012 08/16/17 08/16/17 08/16/17 06:03 12:46 12:46 Creatine Kinase 39 L CK-MB (CK-2) 0.28 0.22 Troponin I < 0.012 < 0.012 Impressions: Chest X-Ray 08/15/17 00:00 IMPRESSION: Mild chronic lung changes with no acute cardiopulmonary disease. Carotid Doppler Study 08/16/17 00:00 IMPRESSION: NO HEMODYNAMICALLY SIGNIFICANT STENOSIS. Qualifiers - * PATEINT BEING DISCHARGED WITH ANY OF THE FOLLOWING DIAGNOSIS?: Stroke Stroke Pt being discharged on Anti-thrombolytic therapy?: Yes Reason(s) for not prescribing Anti-thrombolytic therapy:: Not indicated Stroke Pt being discharged on Anti-coagulation therapy?: No Reason(s) for not prescribing Anti-coagulation therapy:: Not indicated Stroke Pt being discharged on Statins?: Yes
== END 2017-08-17 15:49 | disposition home or self-care (01) ==
LOC: 3W 17:41 → INTOOBSV 17:41
PROVIDERS: ADMIT Internal Medicine; ATTEND Internal Medicine
PROC: 3E0234Z Introduction of Serum, Toxoid and Vaccine into Muscle, Percutaneous Approach (ICD-10-PCS; principal; 2017-08-17)
DX: I63.8 Other cerebral infarction (principal); E11.9 Type 2 diabetes mellitus without complications; F17.200 Nicotine dependence, unspecified, uncomplicated; M19.90 Unspecified osteoarthritis, unspecified site; I10 Essential (primary) hypertension; R41.3 Other amnesia; R26.9 Unspecified abnormalities of gait and mobility; J44.9 Chronic obstructive pulmonary disease, unspecified; Z79.899 Other long term (current) drug therapy; Z79.84 Long term (current) use of oral hypoglycemic drugs; Z23 Encounter for immunization
CPT/HCPCS: 36415 ×2; 84439; 82553; 82962 ×3; 82550; 84443; 85025; 80053; 84484; 82565; 93306; 93880; 70553; 71046; 90686; 93005; 93010; 97163; 97167; A9577; A9270 ×7; J1644 ×2; J3490; G8978; G8979; G8980; G8987; G8988; G8989

== ENCOUNTER → 2017-08-15 | Outpatient (CLI) | payer MEDICARE, MEDICAID ==
--- NOTE | 2017-08-15 13:23 | RADIOLOGY REPORT (SQ) ---
EXAM DESCRIPTION: MRI HEAD COMBO COMPLETED DATE/TIME: 08/15/2017 1:03 pm REASON FOR STUDY: I63.9 CEREBRAL INFARCTION, UNSPECIFIED I63.9 CEREBRAL INFARCTION, UNSPECIFIED COMPARISON: CT dated 08/11/2009. No recent imaging of the brain. TECHNIQUE: Multiplanar imaging includes noncontrasted T1, T2, FLAIR, diffusion with ADC map and post gadolinium contrast T1 sequences. Images stored on PACS. CONTRAST TYPE AND DOSE: 15 mL Multihance. RENAL FUNCTION: GFR > 60. LIMITATIONS: None. FINDINGS: ANATOMY: No anomalies. Normal vascular flow voids. Pituitary fossa normal. CSF SPACES: Normal in size and contour. No hemorrhage. CEREBRUM: Sulci and gyri normal in size and contour. Normal white matter signal on FLAIR imaging. No evidence of hemorrhage or extraaxial fluid collection. Abnormal signal with irregular peripheral enh ancement involving the right lentiform nucleus and external capsule. POSTERIOR FOSSA: No signal alteration. No hemorrhage. No edema, masses, or mass effect. Internal juma tory canals, cerebellopontine angles, mastoids normal. No enhancing lesions. No abnormal enhancement post contrast. DIFFUSION IMAGING: Mild restricted diffusion involving the right lentiform nucleus and external capsu le. Also focal areas of restricted diffusion in the periventricular white matter adjacent to the occ ipital horn of the right lateral ventricle. ORBITS: No masses. Globes normal. PARANASAL SINUSES: No fluid levels. Mucosa normal. OTHER: No other significant finding. IMPRESSION: ABNORMAL SIGNAL INVOLVING THE RIGHT LENTIFORM NUCLEUS AND EXTERNAL CAPSULE WITH IRREGULA R PERIPHERAL ENHANCEMENT AND MILD RESTRICTED DIFFUSION. THIS PROBABLY IS DUE TO A SUBACUTE INFARCT. MALIGNANT PROCESS LESS LIKELY BUT NOT EXCLUDED. THERE ARE ALSO A FEW FOCAL AREAS OF RESTRICTED DIFF USION IN THE PERIVENTRICULAR WHITE MATTER ADJACENT TO THE OCCIPITAL HORN OF THE RIGHT LATERAL VENTRIC LE, ALSO PROBABLY DUE TO SMALL FOCAL LACUNAR INFARCTS. RECOMMEND FOLLOW-UP MRI IN SEVERAL WEEKS TO D ETERMINE IF THESE FINDINGS RESOLVE. EVIDENCE OF ACUTE STROKE: PROBABLE SUBACUTE INFARCT. RIGHT MCA TECHNICAL DOCUMENTATION: JOB ID: [id number]- All Rights Reserved Reading location - IP/workstation name: [email or web address]
== END ==
LOC: RAD 14:52
PROVIDERS: ATTEND Internal Medicine
DX: I63.9 Cerebral infarction, unspecified (principal)
CPT/HCPCS: 82962; 82565; 70553; A9577

== ENCOUNTER → 2017-10-26 | Outpatient (CLI) | payer MEDICARE, MEDICAID ==
[~2017-10-26] MED LIST: REGADENOSON INJ 0.4 MG/5 ML DISP.SYRIN IV ONE
--- NOTE | 2017-10-26 13:33 | DRAGON STRESS TEST REPORT ---
INTRAVENOUS LEXISCAN CARDIOLITE STRESS TEST USING SINGLE PHOTON EMMISION COMPUTERIZED TOMOGRAPHIC. DATE OF PROCEDURE: October 26, 2017, INDICATION : Abnormal electrocardiogram CARDIAC RISK FACTORS: Type 2 diabetes, hypertension, tobacco abuse and history of prior stroke RESTING EKG: Sinus rhythm with minor nonspecific ST-T wave changes STRESS EKG: No significant ST segment changes noted with LexiScan bolus REASON FOR TERMINATION: Protocol. PROCEDURE REPORT: Baseline heart rate 78 beats per minute with blood pressure of 143/89. Patient had no significant complaints. Patient was bolused with Lexiscan 0.4 mg intravenously followed by saline bolus. Heart rate at 2 minutes post bolus 114 with a blood pressure of 152/83. 3 minutes post bolus heart rate 110 with blood pressure of 159/81. No significant EKG changes were noted. Patient had no significant complaints during the procedure or postprocedure. Patient injected with Aminophyllin 75 mg at 3 minutes or later after Lexiscan bolus. CONCLUSIONS: Normal EKG and hemodynamic response to IV LexiScan. NUCLEAR DATA: At rest the patient was given 13.84 millicuries of technetium 99 sestamibi injected intravenously. As per protocol rest gated SPECT images were obtained. On day of stress test, the patient was given intravenous LexiScan at a dose of 0.4 mg in 5 mL intravenously, followed by flush with normal saline. Subsequently the stress dose of 40.1 millicuries of technetium 99 sestamibi was injected intravenously. As per protocol stress gated images were obtained. NUCLEAR INTERPRETATION: Both raw and processed data were used for interpretation. Visual, qualitative, computer-generated quantitative data was used. There was good myocardial uptake of technetium compound. Motion artifact and soft tissue attenuations were noted. Increased visceral uptake was noted. No definitive areas of transient perfusion defect noted, No definitive areas of fixed perfusion defect or scars noted. EKG gated imaging showed LV EF at 40 %, rest and stress gated EF similar visually. No definite regional wall motion abnormalities noted. LVH noted. T. I D. ratio was 1.01. Lung heart ratio noted to be within normal limits 0.30. No significant extracardiac and abnormal radiotracer activities were noted. RV free wall uptake was noted to be WNL. IMPRESSION: Also refer to comments under nuclear interpretation. Also test results needs to be interpreted in the context of pretest probability. 1. No definitive areas of transient perfusion defect noted. 2. There is no definitive scintigraphic evidence of myocardial infarction/scar. 3. EKG gated imaging shows left ventricular ejection fraction of approx. 40 %. LVH suspected. 4. Clinical correlation requested as occasionally single vessel disease or balanced ischemia could be missed. In approximately 10% of the cases Lexiscan may not cause adequate vasodilatory stress. RECOMMENDATIONS: Aggressive risk factor modification and medical management. Further evaluation may be needed if continued symptoms or other high risk indicators are noted on clinical evaluation. Close cardiology follow-up is also recommended. Clinical correlation with echocardiogram derived ejection fraction. Inability to exercise by itself can lead to increased cardiovascular event risks. Consider cardiology consultation and or follow-up if clinically indicated. I am available for cardiology evaluation and consultation if requested by the pharmacy customer care specialist, unless patient already has a rn child. OMAR
== END ==
LOC: RAD 08:00
PROVIDERS: ATTEND Internal Medicine Cardiovascular Disease
DX: Z01.810 Encounter for preprocedural cardiovascular examination (principal); R94.31 Abnormal electrocardiogram [ECG] [EKG]; I10 Essential (primary) hypertension
CPT/HCPCS: 93017; 78452; A9500; J2785; Q9969

== ENCOUNTER → 2017-11-08 | Outpatient (CLI) | payer MEDICARE, MEDICAID ==
--- NOTE | 2017-11-08 11:04 | RADIOLOGY REPORT (SQ) ---
EXAM DESCRIPTION: BARIUM SWALLOW ESOPHAGUS COMPLETED DATE/TIME: 11/08/2017 9:51 am REASON FOR STUDY: DYSPHAGIA, UNSPECIFIED TYPE R13.10 DYSPHAGIA, UNSPECIFIED choking and coughing wi th meals COMPARISON: None. TECHNIQUE: Under fluoroscopic guidance, patient ingested effervescent granules followed by thick and thin barium. Fluoroscopic spot images and routine radiographic images acquired and stored on PACS. 12 MM BARIUM TABLET GIVEN: Yes. Pill is retained within a large Zenker's diverticulum. LIMITATIONS: None. FLUOROSCOPY TIME: FLUORO TIME: 2.8 minutes of fluoroscopy was used. 9 images saved to PACS. FINDINGS: NEUROMUSCULAR COORDINATION OF SWALLOW: Laryngeal penetration and aspiration of contrast se en. Moderate cricopharyngeal hypertrophy is identified. ESOPHAGEAL MOTILITY: Normal peristalsis. No esophageal spasm. ESOPHAGEAL MUCOSA: An approximate 3 cm x 6 cm Zenker's diverticulum is seen in the proximal esophagus which retained contrast material throughout the study. 12 mm pill was swallowed and retained within the Zenker's diverticulum throughout the study. There is reflux of contrast from the Zenker's diver ticulum into the piriform sinuses which led to aspiration. GASTRO-ESOPHAGEAL JUNCTION: No hiatal hernia or reflux. NON-GI TRACT STRUCTURES: No significant finding. OTHER: No other significant finding. IMPRESSION: LARGE ZENKER'S DIVERTICULUM WHICH RETAINS CONTRAST THROUGHOUT THE STUDY, WELL THE 12 MM BARIUM TABLET, WHICH LED TO ASPIRATION OF CONTRAST. MODERATE CRICOPHARYNGEAL HYPERTROPHY. REM AINDER OF THE ESOPHAGUS IS UNREMARKABLE. RECOMMENDATION: Surgical intervention. COMMENT: Quality ID [id number]: Final reports for procedures using fluoroscopy that document radiation exp osure indices, or exposure time and number of fluorographic images (if radiation exposure indices are not available) TECHNICAL DOCUMENTATION: JOB ID: [id number] [employer]- All Rights Reserved Reading location - IP/workstation name: [email or web address]
== END ==
LOC: RAD 09:03
PROVIDERS: ATTEND Otolaryngology
DX: K22.5 Diverticulum of esophagus, acquired (principal); R13.10 Dysphagia, unspecified
CPT/HCPCS: 74220

== ENCOUNTER 2017-12-20 12:00 | Day surgery (SDC) | payer MEDICARE, MEDICAID ==
[2017-12-16 12:01] LABS: ABSOLUTE EOSINOPHILS # (AUTO) 0.3 10^3/uL (0.0-0.6); ABSOLUTE LYMPHOCYTES (AUTO) 2.2 10^3/uL (0.5-4.7); ABSOLUTE MONOCYTES (AUTO) 0.6 10^3/uL (0.1-1.4); ABSOLUTE NEUT (AUTO) 4.9 10^3/uL (1.7-8.2); BASOPHILS % (AUTO) 0.5 % (0-2); EOSINOPHILS % (AUTO) 3.3 % (0-6); HEMATOCRIT 45.3 % (37.9-51.0); HEMOGLOBIN 15.4 g/dL (13.5-17.0); LYMPHOCYTES % (AUTO) 27.3 % (13-45); MEAN CORPUSCULAR HEMOGLOBIN 29.5 pg (27.0-33.4); MEAN CORPUSCULAR HGB CONC 33.9 g/dL (32.0-36.0); MEAN CORPUSCULAR VOLUME 87 fl (80-97); MONOCYTES % (AUTO) 7.8 % (3-13); PLATELET COUNT 160 10^3/uL (150-450); RED BLOOD COUNT 5.22 10^6/uL (4.35-5.55); RED CELL DISTRIBUTION WIDTH 13.8 % (11.5-14.0); SEGMENTED NEUTROPHILS % (AUTO) 61.1 % (42-78); TOTAL CELLS COUNTED % (AUTO) 100 %; WHITE BLOOD COUNT 8.1 10^3/uL (4.0-10.5)
[2017-12-16 12:08] LABS: APPEARANCE,URINE CLEAR; BILIRUBIN,URINE NEGATIVE (NEGATIVE); COLOR,URINE YELLOW; GLUCOSE, URINE NEGATIVE (NEGATIVE); KETONES,URINE NEGATIVE (NEGATIVE); LEUKOCYTE ESTERASE,URINE NEGATIVE (NEGATIVE); NITRITE,URINE NEGATIVE (NEGATIVE); PROTEIN,URINE NEGATIVE (NEGATIVE); URINE SPECIFIC GRAVITY 1.018
--- NOTE | 2017-12-16 12:29 | RADIOLOGY REPORT (SQ) ---
EXAM DESCRIPTION: CHEST PA/LATERAL COMPLETED DATE/TIME: 12/16/2017 12:05 pm REASON FOR STUDY: PRE-OP COMPARISON: 09/29/2017 EXAM PARAMETERS: NUMBER OF VIEWS: two views TECHNIQUE: Digital Frontal and Lateral radiographic views of the chest acquired. RADIATION DOSE: NA LIMITATIONS: none FINDINGS: LUNGS AND PLEURA: No opacities, masses or pneumothorax. No pleural effusion. MEDIASTINUM AND HILAR STRUCTURES: No masses or contour abnormalities. HEART AND VASCULAR STRUCTURES: Heart normal size. No evidence for failure. BONES: No acute findings. HARDWARE: None in the chest. OTHER: No other significant finding. IMPRESSION: NO SIGNIFICANT RADIOGRAPHIC FINDING IN THE CHEST. TECHNICAL DOCUMENTATION: JOB ID: [id number] [employer] All Rights Reserved Reading location - IP/workstation name: [email or web address]
[2017-12-16 12:48] LABS: ANION GAP 11 (5-19); BLOOD UREA NITROGEN 13 mg/dL (7-20); CARBON DIOXIDE 29 mmol/L (22-30); CHLORIDE 105 mmol/L (98-107); GLUCOSE 104 mg/dL (75-110); POTASSIUM 4.1 mmol/L (3.6-5.0); SODIUM 145.4 mmol/L (137-145)
[~2017-12-20 12:00] MED LIST changes: +CEFAZOLIN 2 GM/D5W RTU 2 GM/50 ML RTUPB IV PRN; +LACTATED RINGERS 1000 ML IV PRN; +LIDOCAINE 0.5% INJ-PF (5 MG/ML) 50 ML SDV SUBCUT PRN; -REGADENOSON INJ 0.4 MG/5 ML DISP.SYRIN IV ONE
[2017-12-20] MEDS ORDERED: BUPIVACAINE HCL 0.5 % INJ/PF 30 ML SDV ONE (13:00)
[2017-12-20] MEDS ORDERED: LIDOCAINE 1% INJ-PF (10 MG/ML) 30 ML SDV ONE (13:00)
[2017-12-20 13:11] LABS: POTASSIUM 3.7 mmol/L (3.6-5.0)
[2017-12-20] MEDS ORDERED: LIDOCAINE 2% INJ-PF (20 MG/ML) 10 ML AMPUL ONE (13:37)
[2017-12-20] MEDS ORDERED: FENTANYL CITRATE INJ/PF 100 MCG/2 ML AMPUL ONE ×2 (13:37→14:32)
[2017-12-20] MEDS ORDERED: PROPOFOL INJ 200 MG/20 ML VIAL IV ONE ×2 (13:38→14:32)
[2017-12-20] MEDS ORDERED: DEXMEDETOMIDINE INJ 80 MCG/20 ML VIAL IV ONE (13:38)
[2017-12-20] MEDS ORDERED: MIDAZOLAM 2 MG/2 ML INJ ONE ×2 (13:38→14:32)
[2017-12-20] MEDS ORDERED: ACETAMINOPHEN 0 MG/0 ML RTUPB IV ONE (13:38)
[2017-12-20] MEDS ORDERED: KETAMINE HCL INJ 500 MG/10 ML VIAL ONE (14:32)
[2017-12-20] MEDS ORDERED: MEPERIDINE HCL/PF INJ 25 MG/1 ML DISP.SYRIN IV PRN (15:29)
[2017-12-20] MEDS ORDERED: PROMETHAZINE HCL INJ 25 MG/1 ML VIAL IV PRN ×2 (15:29)
[2017-12-20] MEDS ORDERED: DIPHENHYDRAMINE HCL 50 MG/ML VIAL IV PRN (15:29)
[2017-12-20] MEDS ORDERED: FENTANYL CITRATE INJ/PF 100 MCG/2 ML AMPUL IV PRN ×3 (15:29)
[2017-12-20] MEDS ORDERED: ONDANSETRON HCL INJ/PF 4 MG/2 ML SDV IV PRN ×2 (15:29→15:45)
[2017-12-20] MEDS ORDERED: HYDROCODONE/ACETAMINOPHEN 5-325 MG TABLET PO PRN (15:45)
--- NOTE | 2017-12-20 15:45 | Discharge Summary ---
Discharge Summary (SDC) - Discharge Final Diagnosis: Left carpal tunnel syndrome Date of Surgery: 12/20/17 Condition: Good Treatment or Instructions: Schedule Follow Up w/ Dr. Yohan Mitchell @ [facility] for Surgery to be seen in 10-14 days or as scheduled Wittman: Rudyard: Iliff: May remove dressing on postop day #3, keep incision covered and dry. Ice and elevate May begin finger range of motion attempting to make full fist. Stool softener of choice when on pain medication. Prescriptions: Hydrocodone/Acetaminophen [Alliance 5-325 mg Tablet] 1 tab PO Q6 PRN #15 tablet PRN Reason: Referrals: IBRAHIMA TIRADO MD [Primary Care Provider] - Discharge Diet: As Tolerated Respiratory Treatments at Home: Deep Breathing/Coughing Discharge Activity: No Lifting Over 10 Pounds, No Lifting/Push/Pulling Report the Following to Your Physician Immediately: Fever over 101 Degrees, Unusual Bleeding, Redness, Swelling, Warmth, Increased Soreness
--- NOTE | 2017-12-20 15:45 | Operative Report ---
Operative Report DATE OF SURGERY: 12/20/17 PREOPERATIVE DIAGNOSIS: Left carpal tunnel syndrome POSTOPERATIVE DIAGNOSIS: Same OPERATION: Left endoscopic carpal tunnel release SURGEON: MYCHAL CHILEL ANESTHESIA: LMAC COMPLICATIONS: None ESTIMATED BLOOD LOSS: Minimal PROCEDURE: Indication for above procedure: 66-year-old male with complaints of numbness and tingling in his left upper extremity. Patient had electrodiagnostic testing demonstrating carpal tunnel syndrome. Patient failed conservative measures without resolution of his symptoms at that point we discussed treatment options including operative versus nonoperative intervention. Risks and benefits were explained patient verbalized understanding consented for the procedure. Procedure In Detail: Patient was seen and evaluated in the preoperative holding area. The LEFT upper extremity was initialized and marked. Patient received Ancef IV for bacterial prophylaxis. Patient was taken back to the operative room where transferred operative table. Patient was then placed under MAC anesthesia. Once adequately anesthetized, a nonsterile tourniquet was placed on the upper extremity. A surgical team debriefing was performed ensuring all instrumentation was available, the surgical procedure was discussed with possible concerns reviewed. Skin was prepped with alcohol a 50:50 10 mL mixture of 1% lidocaine and 0.5% Marcaine plain was injected locally and w/in carpal canal. The upper extremity was prepped with chlorhexidine and alcohol and draped in a sterile fashion. A timeout was done identifying correct patient, procedure and extremity everyone in attendance agree with this and verbalized no concerns.The extremity was then exsanguinated the tourniquet was inflated to 250 mmHg. A transverse skin incision was made just proximal to the wrist flexion crease ulnar to the palmaris longus. Blunt dissection was performed down to the palmaris longus tendon which was retracted radially. Deep to the palmaris longus tendon was the volar carpal ligament this was incised identifying the median nerve deep. With the use of a Radford elevator any soft tissue/synovium was freed from the undersurface of the transverse carpal ligament. The hook of hamate was identified ulnarly. The ConMed cannulas were then introduced beginning with #1 progressing to a #3 gently dilating the carpal canal. I then introduced the scope within the cannula and identified transverse carpal ligament ensuring the median nerve was not visualized within the cannula. I triangulated distally with a 25-gauge needle identifying the distal aspect of the transverse carpal ligament, to ensure protection of the superficial palmar arch. The arthroscopic knife was used to incise the transverse carpal ligament under direct visualization with the arthroscopic camera. Any excess transverse fibers that remained after the first past were carefully released with a repeat pass. The median nerve was then directly visualized radially without disruption. Once this was completed I placed the #3 dilator and assured I got complete release of the transverse carpal ligament without residual compression. The median nerve was directly visualized and free of any overlying compression. I then turned my attention to release of the volar antebrachial fascia proximally. Once again a Radford was used to open the wound and I proceeded with cannula #1 to #3. The arthroscope was introduced into the cannula and under direct visualization the volar antebrachial fascia was released. Once this was complete I copiusly irrigated the wound with normal saline. The skin incision was closed with 4-0 Monocryl subcutaneous and a running subcuticular 4-0 Monocryl. This was reinforced with Dermabond and Steri -Strips. Sterile, 4 x 4's and a Sukumar bandage was placed loosely. Sponge counts , instrument counts and needle counts were correct. The was no intraoperative complications patient tolerated the procedure well and was stable to PACU.
[2017-12-20] MEDS: FENTANYL CITRATE INJ/PF 100 MCG/2 ML AMPUL ONE ×2 (16:14→16:19)
[2017-12-20] MEDS ORDERED: ACETAMINOPHEN 1,000 MG/100 ML RTUPB IV ONE (16:30)
[2017-12-20] MEDS ORDERED: HYDROCHLOROTHIAZIDE 12.5 MG TABLET PO ONE (18:30)
[2017-12-20] MEDS ORDERED: LOSARTAN POTASSIUM 50 MG TABLET PO ONE (18:30)
[2017-12-20 18:48] VITALS: BP 157/102
== END 2017-12-20 18:45 | disposition home or self-care (01) ==
LOC: OROUT 12:00
PROVIDERS: ATTEND Orthopaedic Surgery
DX: G56.02 Carpal tunnel syndrome, left upper limb (principal); E11.9 Type 2 diabetes mellitus without complications; F17.210 Nicotine dependence, cigarettes, uncomplicated; J44.9 Chronic obstructive pulmonary disease, unspecified; I10 Essential (primary) hypertension; Z79.01 Long term (current) use of anticoagulants; Z79.899 Other long term (current) drug therapy; Z79.84 Long term (current) use of oral hypoglycemic drugs; Z79.51 Long term (current) use of inhaled steroids; Z86.73 Personal history of transient ischemic attack (TIA), and cerebral infarction without residual deficits
CPT/HCPCS: 36415 ×2; 82962; 82947; 84132; 85025; 80048; 81001; 83036; 71046; 29848; J2250; A9270 ×2; J3010; J3490; J2704; J0690; J0131; 1810

== ENCOUNTER → 2019-07-19 | Outpatient (CLI) | payer MEDICARE, MEDICAID ==
--- NOTE | 2019-07-19 14:43 | RADIOLOGY REPORT (SQ) ---
EXAM DESCRIPTION: MRI LUMBAR SPINE WITHOUT COMPLETED DATE/TIME: 07/19/2019 1:54 pm REASON FOR STUDY: LUMBAR RADICULOPATHY (M54.16) M54.16 RADICULOPATHY, LUMBAR REGION COMPARISON: 02/16/2014. TECHNIQUE: Sagittal and Axial imaging includes T1, T2, STIR and gradient echo sequences. Coronal T2/ HASTE imaging. LIMITATIONS: None. FINDINGS: VISUALIZED UPPER ABDOMEN: Limited evaluation. No acute or suspicious findings suggested. SEGMENTATION: No transitional anatomy. The lowest well-developed disc space is labeled L5-S1. ALIGNMENT: Anatomic. VERTEBRAE: Intact. BONE MARROW: Normal. No marrow replacement or reactive changes. DISC SIGNAL: Normal. No significant abnormal signal or loss of height. POSTERIOR ELEMENTS: Generally intact. No pars defect evident. HARDWARE: Hardware at L4-L5. CORD AND CONUS: Normal in size and signal intensity. Conus at the appropriate level. SOFT TISSUES: No aortic aneurysm seen. No bulky retroperitoneal adenopathy or mass. No paraspinal mas s or fluid. L1-L2: No significant spinal stenosis or exit foraminal stenosis. L2-L3: No significant spinal stenosis or exit foraminal stenosis. L3-L4: Mild diffuse posterior disc bulge. Facet arthropathy. Mild spinal stenosis. Bilateral exit foraminal stenosis, worse on the right. L4-L5: Surgical changes. Decompressive laminectomy. No significant spinal stenosis. Mild right exi t foraminal stenosis. L5-S1: No significant spinal stenosis or exit foraminal stenosis. LOWER THORACIC: Incompletely imaged. No stenosis seen. SACRUM: Visualized upper sacrum intact. OTHER: No other significant findings. IMPRESSION: STABLE SURGICAL CHANGES. MILD SPINAL STENOSIS AT L3-L4 AND BILATERAL EXIT FORAMINAL KAREN NOSIS, WORSE ON THE RIGHT. MILD RIGHT EXIT FORAMINAL STENOSIS AT L4-L 5. NO ACUTE FINDINGS. TECHNICAL DOCUMENTATION: JOB ID: [id number] [employer]- All Rights Reserved Reading location - IP/workstation name: [email or web address]
== END ==
LOC: RAD 12:29
PROVIDERS: ATTEND Internal Medicine
DX: M54.16 Radiculopathy, lumbar region (principal)
CPT/HCPCS: 72148

== ENCOUNTER 2019-12-17 21:51 | Emergency (ER) | payer MEDICARE, MEDICAID ==
[2019-12-17] MEDS ORDERED: ONDANSETRON HCL INJ/PF 4 MG/2 ML SDV IV ONE (22:21)
--- NOTE | 2019-12-17 22:21 | ER Document Report ---
ED General - General Stated Complaint: WEAKNESS Time Seen by Provider: 12/17/19 22:13 Primary Care Provider: IBRAHIMA TIRADO MD [Primary Care Provider] - Follow up as needed Information source: Patient Cannot obtain history due to: Altered mental status Notes: [age]-year-old black male with chief complaint of right upper extremity weakness and choking sensation. Patient denies any history of food bolus aspiration problems but does have diabetes and hypertension. He has never had a CVA in the past according the patient. I was called to the room at 2210 to speak with the patient because he had some choking sensations. TRAVEL OUTSIDE OF THE [place] IN LAST 30 DAYS: No - HPI Onset: Just prior to arrival - 2029 Onset/Duration: Sudden Quality of pain: No pain Severity: Mild Pain Level: 1 Associated symptoms: Nausea, Weakness Exacerbated by: Movement Relieved by: Denies Similar symptoms previously: Yes Recently seen / treated by doctor: No - Related Data Allergies/Adverse Reactions: No Known Allergies Allergy (Verified 12/20/17 13:10) Past Medical History - General Information source: Patient - Social History Smoking Status: Current Every Day Smoker Cigarette use (# per day): Yes Chew tobacco use (# tins/day): No Smoking Education Provided: Yes Frequency of alcohol use: Occasional Drug Abuse: None Lives with: Family Family History: Reviewed & Not Pertinent Patient has suicidal ideation: No Patient has homicidal ideation: No - Past Medical History Cardiac Medical History: Reports: Hx Hypertension Denies: Hx Coronary Artery Disease, Hx Heart Attack Pulmonary Medical History: Reports: Hx COPD Denies: Hx Asthma, Hx Bronchitis, Hx Pneumonia Neurological Medical History: Denies: Hx Cerebrovascular Accident, Hx Seizures Endocrine Medical History: Reports: Hx Diabetes Mellitus Type 2 Musculoskeletal Medical History: Denies Hx Arthritis Psychiatric Medical History: Denies: Hx Depression - Immunizations Hx Diphtheria, Pertussis, Tetanus Vaccination: Yes Review of Systems - Review of Systems Constitutional: See HPI, Weakness EENT: See HPI, Difficulty swallowing Cardiovascular: No symptoms reported Respiratory: No symptoms reported Gastrointestinal: No symptoms reported Genitourinary: No symptoms reported Male Genitourinary: No symptoms reported Musculoskeletal: See HPI, Other - Right upper extremity weakness and numbness Skin: No symptoms reported Hematologic/Lymphatic: No symptoms reported Neurological/Psychological: See HPI, Weakness, Loss of power, Numbness Physical Exam - Vital signs Vitals: Temp 98.6 F 12/17/19 22:47 - General General appearance: Alert, Anxious - HEENT Head: Normocephalic, Atraumatic Eyes: Normal Conjunctiva: Normal Cornea: Normal Pupils: PERRL Pharynx: Normal Neck: Normal - Respiratory Respiratory status: No respiratory distress Chest status: Nontender Breath sounds: Normal Chest palpation: Normal - Cardiovascular Rhythm: Regular Heart sounds: Normal auscultation Murmur: No - Abdominal Inspection: Normal Distension: No distension Bowel sounds: Normal Tenderness: Nontender Organomegaly: No organomegaly - Rectal Prostate: Other - deferred - Genitourinary Scrotum: Other - deferred - Back Back: Normal - Extremities General upper extremity: Other - Witnessed right upper arm neglect at 2214 by myself and nursing staff General lower extremity: Normal ROM, Other - At my request patient able to move both lower extremities - Neurological Neuro grossly intact: Yes Orientation: AAOx4 Mag Coma Scale Eye Opening: Spontaneous Mag Coma Scale Verbal: Oriented Mag Coma Scale Motor: Obeys Commands Mag Coma Scale Total: 15 Speech: Dysarthria Motor strength normal: LUE, LLE, RLE. No: RUE - Psychological Associated symptoms: Anxious - Skin Skin Temperature: Warm Skin Moisture: Diaphoretic Course - Vital Signs Vital signs: Temp Pulse Resp BP Pulse Ox 98.6 F 12/17/19 22:47 - Laboratory Result Diagrams: 12/17/19 22:30 12/17/19 22:30 Critical Care Note - Critical Care Note Comments: I spoke to sisters Julienne Lambert at 0 to alert them about the patient's right upper extremity numbness and no use motor of right upper extremity. I reexamined patient at 2229 and he is able to move his fingers but no sensation to his right upper extremity movement of all other extremities are within normal limits. I spoke to CLARENCE Ying at the transfer center at [facility] at 2243 and she is excepted the patient. She advises TPA. At this time the CT of head has not been read yet by radiologist; I called x-ray CT department at 5 they spoke with radiologist and were told that the CT has been read however my refreshed computer screens have no reading as yet. Radiology staff also do not know whether this was a negative or positive CVA. Jesus LIMA was able to pull up on his computer the results of the CT which revealed left lateral sellar realm left basal ganglia and right periventricular changes. No bleed. Discharge - Discharge Clinical Impression: acute left ischemic cva Condition: Fair Disposition: [facility] Additional Instructions: Transferred patient by air to [facility]. Patient symptoms appear to be improving with question of TIA. This was at 2249. Also CT was read as negative for bleed. tPA was written. Helicopter was within 5 minutes of arrival. Referrals: IBRAHIMA TIRADO MD [Primary Care Provider] - Follow up as needed
[2019-12-17 22:49] LABS: ABSOLUTE EOSINOPHILS # (AUTO) 0.2 10^3/uL (0.0-0.6); ABSOLUTE LYMPHOCYTES (AUTO) 2.4 10^3/uL (0.5-4.7); ABSOLUTE MONOCYTES (AUTO) 0.8 10^3/uL (0.1-1.4); ABSOLUTE NEUT (AUTO) 6.7 10^3/uL (1.7-8.2); BASOPHILS % (AUTO) 0.3 % (0-2); EOSINOPHILS % (AUTO) 1.6 % (0-6); HEMATOCRIT 45.6 % (37.9-51.0); HEMOGLOBIN 15.3 g/dL (13.5-17.0); LYMPHOCYTES % (AUTO) 23.7 % (13-45); MEAN CORPUSCULAR HEMOGLOBIN 30.5 pg (27.0-33.4); MEAN CORPUSCULAR HGB CONC 33.6 g/dL (32.0-36.0); MEAN CORPUSCULAR VOLUME 91 fl (80-97); MONOCYTES % (AUTO) 8.3 % (3-13); PLATELET COUNT 157 10^3/uL (150-450); RED BLOOD COUNT 5.03 10^6/uL (4.35-5.55); RED CELL DISTRIBUTION WIDTH 14.9 % (11.5-14.0); SEGMENTED NEUTROPHILS % (AUTO) 66.1 % (42-78); TOTAL CELLS COUNTED % (AUTO) 100 %; WHITE BLOOD COUNT 10.1 10^3/uL (4.0-10.5)
--- NOTE | 2019-12-17 22:50 | RADIOLOGY REPORT (SQ) ---
EXAM DESCRIPTION: Noncontrast CT head CLINICAL HISTORY: 68 years Male cva rue dec use TECHNIQUE: Noncontrast CT head. All CT scans at this facility use dose modulation, iterative reconstruction, and/or weight based dosing when appropriate to reduce radiation dose to as low as reasonably achievable. COMPARISON: MRI brain August 15, 2017 FINDINGS: There is mild to moderate cerebral volume loss. Patchy periventricular and white matter hypodensities are nonspecific, but in a pattern compatible with chronic microvascular ischemic change. More focal area of encephalomalacia is present in the region of the right lentiform nucleus and external capsule, compatible with sequela of remote infarct. More prominent area of hypodensity is seen adjacent to the posterior horn of the right lateral ventricle, an age-indeterminate finding. Area of hypodensities are also seen within the left basal ganglia region and within the lateral left cerebellum, also nonspecific and age-indeterminate. No acute hemorrhage or mass effect. Visualized portions of paranasal sinuses demonstrate scattered areas of paranasal sinus disease within the ethmoid and sphenoid sinuses. The mastoids are clear. Visualized portions of the calvarium are within normal limits. IMPRESSION: 1. No acute intracranial hemorrhage or mass effect. Age-indeterminate areas of hypodensity involving the lateral left cerebellum, left basal ganglia region, and right periventricular white matter are nonspecific in nature. Findings are in the setting of likely chronic microvascular ischemic change. MRI brain is recommended for further evaluation if there is clinical concern for acute stroke.
[2019-12-17 22:53] VITALS: BP 148/87
[2019-12-17] MEDS ORDERED: ALTEPLASE INJ 100 MG VIAL IV ONE (23:02)
[2019-12-17 23:11] LABS: ALBUMIN 4.2 g/dL (3.5-5.0); ALKALINE PHOSPHATASE 72 U/L (38-126); ASPARTATE AMINO TRANSFERASE 18 U/L (17-59); BILIRUBIN,TOTAL 0.4 mg/dL (0.2-1.3); BLOOD UREA NITROGEN 13 mg/dL (7-20); CALCIUM 9.3 mg/dL (8.4-10.2); CARBON DIOXIDE 32 mmol/L (22-30); CREATINE KINASE 44 U/L (55-170); GLUCOSE 92 mg/dL (75-110); POTASSIUM 4.1 mmol/L (3.6-5.0)
[2019-12-17 23:16] LABS: CHLORIDE 103 mmol/L (98-107)
[2019-12-17 23:17] LABS: ANION GAP 2 (5-19)
--- NOTE | 2019-12-18 14:18 | EKG REPORT ---
SEVERITY:- ABNORMAL ECG - SINUS RHYTHM NONSPECIFIC T ABNORMALITIES, LATERAL LEADS : Confirmed by: Abel Rodriguez MD 18-Dec-2019 14:18:13
== END 2019-12-17 23:04 | disposition short-term general hospital (02) ==
LOC: ER 21:51
DX: I63.9 Cerebral infarction, unspecified (principal); G83.21 Monoplegia of upper limb affecting right dominant side; R20.0 Anesthesia of skin; R13.10 Dysphagia, unspecified; I10 Essential (primary) hypertension; E11.9 Type 2 diabetes mellitus without complications; R11.0 Nausea; F17.210 Nicotine dependence, cigarettes, uncomplicated; J44.9 Chronic obstructive pulmonary disease, unspecified
CPT/HCPCS: 93005; 99285; 96374; 36415; 82962; 82550; 83605; 85025; 80053; 84484; 70450; 93010; J2405

== ENCOUNTER → 2020-02-18 | Outpatient (CLI) | payer MEDICARE, MEDICAID | LOC: OD 13:47 | PROVIDERS: ATTEND Internal Medicine | DX: D72.829 Elevated white blood cell count, unspecified (principal) | CPT/HCPCS: 36415; 88184; 88185 ==

== ENCOUNTER → 2020-04-15 | Outpatient (CLI) | payer MEDICARE, MEDICAID ==
--- NOTE | 2020-04-15 15:13 | RADIOLOGY REPORT (SQ) ---
EXAM DESCRIPTION: CT CHEST WITH IMAGES COMPLETED DATE/TIME: 04/15/2020 8:38 am REASON FOR STUDY: J44.9 CHRONIC OBSTRUCTIVE PULMONARY DISEASE, UNSPECIFIED J44.9 CHRONIC OBSTRUCTIV E PULMONARY DISEASE, UNSPECIFIED COMPARISON: 07/28/2017 TECHNIQUE: CT scan of the chest performed using helical scanning technique with dynamic intravenous contrast injection. Images reviewed with lung, soft tissue and bone windows. Reconstructed coronal and sagittal MPR and MIP images reviewed. All images stored on PACS. All CT scanners at this facility use dose modulation, iterative reconstruction, and/or weight based d osing when appropriate to reduce radiation dose to as low as reasonably achievable (ALARA). [facility]: Dose Right [facility]: CareDose [facility]: Dose Right [facility]: Teradose 4D [facility]: Stackdriver CONTRAST TYPE AND DOSE: contrast/concentration: Isovue 350.00 mmol/ml; Total Contrast Delivered: 80. 0 ml; Total Saline Delivered: 55.0 ml RENAL FUNCTION: GFR > 60. RADIATION DOSE: CT Rad equipment meets quality standard of care and radiation dose reduction techniq ues were employed. CTDIvol: 7.8 mGy. DLP: 350 mGy-cm. . LIMITATIONS: None. FINDINGS: LUNGS AND PLEURA: Moderate upper lobe primarily paraseptal emphysema. No suspicious nodul es or infiltrate. No effusions. HILAR AND MEDIASTINAL STRUCTURES: No identified masses or abnormal nodes. HEART AND VASCULAR STRUCTURES: No aneurysm or dissection. No central pulmonary emboli. No pericardi al effusion. HARDWARE: None in the chest. UPPER ABDOMEN: No significant findings. Limited exam. THYROID AND OTHER SOFT TISSUES: No masses. No adenopathy. BONES: No significant finding. OTHER: No other significant finding. IMPRESSION: Emphysema. No acute findings. TECHNICAL DOCUMENTATION: JOB ID: [id number] Quality ID # [id number]: Final reports with documentation of one or more dose reduction techniques (e.g., Au tomated exposure control, adjustment of the mA and/or kV according to patient size, use of iterative reconstruction technique) 2010 [employer]- All Rights Reserved Reading location - IP/workstation name: [email or web address]
== END ==
LOC: RAD 08:09
PROVIDERS: ATTEND Internal Medicine
DX: J43.8 Other emphysema (principal)
CPT/HCPCS: 71260; 82565